=== PATIENT | male | born 1955 | race Caucasian/White ===

== ENCOUNTER 2020-09-25 16:48 | Emergency (ER) | payer MEDICARE ==
[~2020-09-25] VITALS: Ht 170.2 cm; Wt 104.3 kg
[~2020-09-25 16:48] MED LIST: COUMADIN 5 MG TA5 M1 PO; ENOXAPARIN100 MG/11 SUBQ; IBUPROFEN 600600 M1 PO; NEXIUM40 MG PO
[2020-09-25] MEDS ORDERED: JANTOVEN3 MG PO (17:02)
[2020-09-25] MEDS ORDERED: DILTIAZEM ER180 M2 PO (17:02)
[2020-09-25 20:06] LABS: URINE BILIRUBIN NEGATIVE (Negative); URINE BLOOD TRACE (Negative); URINE CLARITY CLEAR; URINE COLOR YELLOW; URINE GLUCOSE-RANDOM NEGATIVE (Negative); URINE KETONES NEGATIVE (Negative); URINE LEUKOCYTES-REFLEX NEGATIVE (Negative); URINE NITRITE-REFLEX NEGATIVE (Negative); URINE PROTEIN NEGATIVE (Negative); URINE UROBILINOGEN 0.2 E.U./dl (0.2-1.0)
[2020-09-25 20:25] LABS: ABSOLUTE EOSINOPHILS 0.1 thou/uL (0.0-0.7); ABSOLUTE LYMPHOCYTES 0.9 thou/uL (0.8-5.3); ABSOLUTE MONOCYTES 0.4 thou/uL (0.0-1.2); ABSOLUTE NEUTROPHILS 3.2 thou/uL (1.6-8.1); EOSINOPHILS 2.1 %; HEMATOCRIT 41.7 % (42.0-52.0); HEMOGLOBIN 14.5 gm/dL (14.0-18.0); LYMPHOCYTES 19.1 %; MCHC 34.8 g/dL (28.0-37.0); MCV 94.8 fL (80.0-100.0); MPV 6.3 fl. (7.2-11.1); NUCLEATED RBCS 0 /100WBC; PLATELET COUNT* 231 thou/uL (150-400); POLYS 69.8 %; RDW-CV 13.2 % (10.5-14.5); WBC 4.7 thou/uL (4.0-11.0)
[2020-09-25 20:32] LABS: CALCIUM 8.7 mg/dL (8.5-10.1); POTASSIUM 3.6 mmol/L (3.5-5.1)
[2020-09-25 20:36] LABS: ALBUMIN 3.9 g/dL (3.4-5.0); TOTAL BILIRUBIN 0.2 mg/dL (<0.1-1.0); TOTAL PROTEIN 7.8 g/dL (6.4-8.2)
[2020-09-25] MEDS ORDERED: NORCO 5-325 TA1 EAC2 PO (21:51)
[2020-09-25] MEDS ORDERED: AUGMENTIN 875-1 EACH PO (21:51)
[2020-09-25] MEDS ORDERED: ZANAFLEX4 MG PO (21:51)
[2020-09-25 22:29] VITALS: BP 109/85
== END 2020-09-25 22:30 | disposition home or self-care (01) ==
LOC: M.ERS 16:48
PROVIDERS: Family Medicine; Nurse Practitioner Family
DX: I88.0 Nonspecific mesenteric lymphadenitis (principal); E83.42 Hypomagnesemia; E87.1 Hypo-osmolality and hyponatremia; I48.91 Unspecified atrial fibrillation; K21.9 Gastro-esophageal reflux disease without esophagitis; Z86.711 Personal history of pulmonary embolism

== ENCOUNTER → 2020-10-30 | Outpatient (CLI) | payer MEDICARE ==
[~2020-10-30] MED LIST changes: +AUGMENTIN 875-1 EACH PO; +DILTIAZEM ER180 M2 PO; +JANTOVEN3 MG PO; +NORCO 5-325 TA1 EAC2 PO; +ZANAFLEX4 MG PO
== END ==
LOC: M.LAB 09:56
PROVIDERS: ATTEND Surgery
DX: Z01.812 Encounter for preprocedural laboratory examination (principal); Z20.828 Contact with and (suspected) exposure to other viral communicable diseases

== ENCOUNTER → 2020-11-05 | Day surgery (SDC) | payer MEDICARE ==
[~2020-11-05] MED LIST changes: +BENTYL 10 MG CA10 M1 PO; +OXYCODONE HCL 55 MG PO
[2020-11-05 06:30] LABS: HEMATOCRIT 41.6 % (42.0-52.0); HEMOGLOBIN 14.9 gm/dL (14.0-18.0); MCH 33.8 pg (26.0-34.0); MCHC 35.8 g/dL (28.0-37.0); MCV 94.4 fL (80.0-100.0); MPV 6.2 fl. (7.2-11.1); RBC 4.41 mil/uL (4.50-6.00); RDW-CV 13.2 % (10.5-14.5); WBC 4.6 thou/uL (4.0-11.0)
[2020-11-05 06:49] LABS: INR 1.4; PROTIME 14.9 Seconds (9.20-11.50)
[2020-11-05 07:02] LABS: CALCIUM 8.4 mg/dL (8.5-10.1); CREATININE 1.1 mg/dL (0.6-1.3); POTASSIUM 4.4 mmol/L (3.5-5.1)
--- NOTE | 2020-11-05 12:25 | EKG ---
[place] [address] ELECTROCARDIOGRAM REPORT Name: KAYE WOODS Room: [facility]#: [id number] Admission: 11/05/20 Attend Phys: Haydee Reynoso, Discharge: Date of : 53 Date of Service: 11/05/2044 Report #: [id number] THIS REPORT FOR: //name// [facility] Test Date: 2020-11-05 Test Time: 06:44:39 Pat Name: KAYE WOODS Department: Room: Gender: Communications Strategist: ALC : 1955 Requested By: Haydee Reynoso Order Number: [id number] Fernanda MD: Kaye Samuel Measurements Intervals [place] Rate: 70 P: 12 ND: 157 QRS: -45 QRSD: 112 T: 44 QT: 377 QTc: 407 Interpretive Statements Sinus rhythm Left anterior fascicular block No previous ECG available for comparison Electronically Signed On 11-05-2020 12:25:10 [employer]PER[employer] by Kaye Samuel [email or web address] <ELECTRONICALLY SIGNED> By: Kaye Samuel MD, [facility] 11/05/20 1225 0644 Kaye Samuel MD, [facility] /EPI
--- NOTE | 2020-11-07 17:07 | PATH ---
[address] [address] PATHOLOGY RPT PROCEDURE Name: KAYE WOODS Room: [facility]#: [id number] Admission: 11/05/20 Date of : 53 Discharge: Report #: [id number] Path Case #: [id number] [facility] Accession Number: [id number] . 01 Material submitted: . gallbladder - GALLBLADDER . 02 Diagnosis: Gallbladder and contents: - Chronic cholecystitis with cholesterolosis. (SD:marya; 11/07/2020) [facility] 11/07/2020 1550 Local . 02 Electronically signed: . Noah Pickard MD, Pathologist NPI- [id number] . 01 Gross description: . The specimen is received in formalin, labeled "Kaye Beltranberry, gallbladder and contents". Received is an intact gallbladder measuring 8.6 x 3.9 x 3.4 cm in greatest dimensions displaying a sheth-baldwin serosal surface. Opening the specimen reveals a velvety, bile-stained mucosa with a gallbladder wall thickness of 0.1 cm. Calculi are not present, and no masses or lesions are noted grossly. Livestock Handler sections, to include the proximal margin, are submitted in cassette A1. (CAA; 11/06/2020) [facility] 11/06/2020 1343 Local . 02 Pathologist provided ICD-10: K81.1, K82.4 . 02 CPT . 178056 Specimen Comment: A courtesy copy of this report has been sent to [phone], [phone] Specimen Comment: 0113 Specimen Comment: Report sent to / DR STILL Performed at: [address], [place], [place] [id number] MD Timur Tabor MD Phone: [phone] Performed at: [address] [address] [place], [place] [id number] MD Noah Pickard MD Phone: [phone]
--- NOTE | 2020-11-26 12:07 | OP ---
[address] [address] OPERATIVE REPORT Name: KAYE WOODS Room: [facility].#: [id number] Admission: 11/05/20 Attend Phys: Haydee Reynoso DO Discharge: Date of : 53 Report #: [id number] THIS REPORT FOR: cc: Jayesh Weeks Brad DO ~ Haydee Reynoso DO DATE OF SERVICE: 11/05/2020 PREOPERATIVE DIAGNOSIS: Biliary dyskinesia. POSTPROCEDURE DIAGNOSIS: Biliary dyskinesia. FINDINGS: Mildly dilated gallbladder with overlying adhesions. SURGEON: Haydee Reynoso DO CHEMICAL HANDLER: Panda Mae DO, PGY-1 and MS Víctor3. PROCEDURE PERFORMED: Laparoscopic cholecystectomy. ANESTHESIA: General endotracheal and local. ESTIMATED BLOOD LOSS: 2 mL. DRAINS: None. SPECIMENS: Gallbladder. COMPLICATIONS: None. CONDITION: Stable. DISPOSITION: PACU to home. HISTORY OF PRESENT ILLNESS: The patient is a 65-year-old gentleman who presented to my office with complaint of longstanding bouts of upper abdominal pain, discomfort and bloating after consumption of dairy, spicy or high fat foods. He had undergone an extensive workup including CT scans, ultrasounds and PIPIDA scans, all were normal except for PIPIDA scan with an EF of 17%. The patient does have an extensive cardiac history including atrial fibrillation, DVT and PE, on Coumadin. The patient was referred to his staffing associate for clearance and for approval to be off of his blood thinner. Once this was received, the patient was then booked for surgery. Risks discussed included bleeding, infection, pain, scar formation, injury to bowel, liver or bile duct, hernia at the incision sites, need for an open procedure and risks of general [address] [address] OPERATIVE REPORT Name: KAYE WOODS Room: [facility].#: [id number] Admission: 11/05/20 Attend Phys: Haydee Reynoso DO Discharge: Date of : 53 Report #: [id number]. Especially due to the patient's longstanding history of cardiac issues and blood clots, we discussed that he was high risk for surgery. The patient understood these risks and elected to proceed. DESCRIPTION OF PROCEDURE: The patient was brought to the operating room. He was laid supine on the operating room table. SCDs were placed on bilateral lower extremities. Ancef was given in the perioperative period. General endotracheal anesthesia was induced by Anesthesia without difficulty. Abdomen was prepped and draped in standard sterile fashion. Timeout was performed to verify patient and procedure. A 10 mL of 0.5% Marcaine were injected in the infraumbilical area. Incision was made with 11 blade. Cautery was used for hemostasis. S retractors were used to visualize fascia. Fascia was grasped and elevated between 2 Kochers. Fascia was incised using cautery. Peritoneum was bluntly entered using a Lor clamp. Finger was introduced into the abdomen to assure that there were no heron-incisional adhesions, none were identified. Two stitches of 0 Vicryl were placed on the fascia. Giulia trocar was introduced and secured with 0 Vicryl stitches. Abdomen was insufflated. The patient was placed head up and tilted left side down. Camera was introduced and a brief anterior abdominal exploration was undertaken with no significant findings. Three 5 mm trocars were introduced, one in the subxiphoid area and two in the right upper quadrant, all under direct visualization. Gallbladder was grasped and elevated. There were some adhesions around the gallbladder. These were gently taken down using a combination of blunt and cautery dissection until the triangle of Calot was identified. Peritoneum overlying the triangle was incised using cautery. Duct and artery were then both easily visualized and were both circumferentially dissected free using a [place] dissector. Any tissues posterior to the artery were removed. This then afforded the critical view. The gallbladder was then removed from the liver bed utilizing cautery with no further difficulty. Specimen was placed within an EndoCatch bag. Liver bed was inspected. It was hemostatic. Clips were inspected. They appeared to be intact. There was no bleeding or leakage noted from the area of the clips. Trocars were removed under direct visualization. There was no bleeding noted from the peritoneum. Abdomen was completely desufflated. Giulia trocar was removed and EndoCatch bag was removed with specimen intact. Kochers were placed on the fascia of the umbilical port. Previously placed 0 Vicryl stitches were removed and a 0 Vicryl stitch was placed in [id number] fashion with excellent approximation of the fascia. An additional 10 mL 0.5% Marcaine were injected in the fascia. All wounds were closed with 4-0 Monocryl. A total of 30 mL of 0.5% Marcaine were used to anesthetize the wounds. Wounds were then cleansed and covered with Dermabond. The patient was then allowed to awaken [address] [address] OPERATIVE REPORT Name: KAYE WOODS Room: [facility]#: [id number] Admission: 11/05/20 Attend Phys: Haydee Reynoso DO Discharge: Date of : 53 Report #: [id number] from anesthesia, was extubated and transported to the recovery room with no further difficulties. Counts were correct x 2 at the conclusion of the case. <ELECTRONICALLY SIGNED> By: Haydee Reynoso DO 11/26/20 1207 0906 0924Chaggie Reynoso DO /nt
== END | disposition home or self-care (01) ==
LOC: M.SUR 05:49
PROVIDERS: ATTEND Surgery
DX: K81.1 Chronic cholecystitis (principal); R10.10 Upper abdominal pain, unspecified; I48.91 Unspecified atrial fibrillation; K21.9 Gastro-esophageal reflux disease without esophagitis; E66.09 Other obesity due to excess calories; Z98.890 Other specified postprocedural states; Z79.899 Other long term (current) drug therapy; Z86.711 Personal history of pulmonary embolism; Z79.01 Long term (current) use of anticoagulants